=== PATIENT | female | born 1990 | race Caucasian/White ===

== ENCOUNTER 2016-04-01 15:41 | Emergency (ER) | payer SELFPAY ==
--- NOTE | 2016-04-01 15:47 | ER Document Report ---
ED Medical Screen (RME) - General Stated Complaint: TOOTH PAIN Notes: h/o dental caries 7 days or swelling and pain no odor or drainage today, she states that it drained on wednesday I have greeted and performed a rapid initial assessment of this patient. A comprehensive ED assessment and evaluation of the patient, analysis of test results and completion of the medical decision making process will be conducted by additional ED providers. - Related Data Allergies/Adverse Reactions: No Known Allergies Allergy (Verified 04/01/16 15:45) Past Medical History Psychiatric Medical History: Reports: Hx Bipolar Disorder Past Surgical History: Reports: Hx Appendectomy, Hx Cholecystectomy, Hx Tubal Ligation - Immunizations Hx Diphtheria, Pertussis, Tetanus Vaccination: Yes Physical Exam - Vital signs Vitals: Temp Pulse Resp BP Pulse Ox 98.0 F 85 18 131/65 H 97 04/01/16 15:44 04/01/16 15:44 04/01/16 15:44 04/01/16 15:44 04/01/16 15:44 Course - Vital Signs Vital signs: Temp Pulse Resp BP Pulse Ox 98.0 F 85 18 131/65 H 97 04/01/16 15:44 04/01/16 15:44 04/01/16 15:44 04/01/16 15:44 04/01/16 15:44
[2016-04-01] MEDS ORDERED: IBUPROFEN 800 MG TABLET PO ONE (15:48)
--- NOTE | 2016-04-01 17:31 | ER Document Report ---
HPI - HPI Patient complains to provider of: dental pain Onset: Other - for months Quality of pain: Achy Severity: Severe Pain Level: 4 Context: She presents to the emergency department with complaints widespread dental decay and dental pain. Patient reports history of drug abuse and is currently putting her life back together. She reports she [facility] to [facility]. She has treated him Tylenol and Motrin to take care of the pain. She denies other symptoms such as fever vomiting diarrhea. Associated Symptoms: None Exacerbated by: Denies Relieved by: Denies Similar symptoms previously: Yes Recently seen / treated by doctor: No - CARDIOVASCULAR Cardiovascular: DENIES: Chest pain - REPRODUCTIVE Reproductive: DENIES: : - DERM Skin Color: Normal Past Medical History - General Information source: Patient - Social History Smoking Status: Current Every Day Smoker Chew tobacco use (# tins/day): No Frequency of alcohol use: None Drug Abuse: None Occupation: [employer] Family History: Reviewed & Not Pertinent Patient has suicidal ideation: No Patient has homicidal ideation: No Renal/ Medical History: Denies: Hx Peritoneal Dialysis Psychiatric Medical History: Reports: Hx Bipolar Disorder Past Surgical History: Reports: Hx Appendectomy, Hx Cholecystectomy, Hx Tubal Ligation - Immunizations Hx Diphtheria, Pertussis, Tetanus Vaccination: Yes Vertical Provider Document - CONSTITUTIONAL Agree With Documented VS: Yes Exam Limitations: No Limitations General Appearance: WD/WN, No Apparent Distress - nontoxic looking - INFECTION CONTROL TRAVEL OUTSIDE OF THE [place] IN LAST 30 DAYS: No - HEENT HEENT: Atraumatic, Normocephalic Mouth Diagram: 1 - c/o pain wide spread dental decay 2 - c/o pain, opens mouth wide, no erythema, induraiton or pustule, clear voice , no ludwigs - RESPIRATORY O2 Sat by Pulse Oximetry: 97 Course - Re-evaluation Re-evalutation: 04/01/16 17:45 She provided with dental resource information - Vital Signs Vital signs: Temp Pulse Resp BP Pulse Ox 98.0 F 85 18 131/65 H 97 04/01/16 15:44 04/01/16 15:44 04/01/16 15:44 04/01/16 15:44 04/01/16 15:44 Discharge - Discharge Clinical Impression: Pain, dental, elevated blood pressure Condition: Stable Disposition: HOME, SELF-CARE Instructions: Toothache ([facility]), Penicillin V K ([facility]), [facility] Additional Instructions: *You have been evaluated for dental pain Monitor your blood pressure. Your blood pressure was elevated today. This may be because you were anxious, in pain or because you need medication. It is important to follow up with your primary care provider for full evaluation. *Take medications as prescribed *Follow up with a dentist *Return to ED for worsening condition, changes, needs Prescriptions: Penicillin V Potassium [Penicillin Vk 250 mg Tablet] 500 mg PO BID #40 tablet Forms: Elevated Blood Pressure
[2016-04-01 17:33] VITALS: BP 128/65
== END 2016-04-01 17:34 | disposition home or self-care (01) ==
LOC: ER 15:41
DX: K02.9 Dental caries, unspecified (principal); K08.89 Other specified disorders of teeth and supporting structures; I10 Essential (primary) hypertension; F17.200 Nicotine dependence, unspecified, uncomplicated
CPT/HCPCS: 99282